=== PATIENT | female | born 1990 | race American Indian/Alaskan Native ===

== ENCOUNTER 2016-07-15 18:03 | Emergency (ER) | payer SELFPAY ==
[2016-07-15 19:40] LABS: Bacteria,Urine 1+ /HPF (Negative); Bilirubin,Urine NEG (Negative); Blood,Urine NEG (Negative); Ketones,Urine NEG (Negative); Leukocyte Esterase,Urine NEG (Negative); Mucus,Urine FEW /HPF; Nitrite,Urine NEG (Negative); Protein,Urine <15 mg/dL mg/dL (Negative); RBC,Urine < 1.0 /HPF (0.0-6.0); Urobilinogen,Urine < 2.0 mg/dL (<2.0); WBC,Urine < 1.0 /HPF (0.0-6.0)
--- NOTE | 2016-07-15 22:06 | Emergency Department Report ---
ED General Adult HPI - General Chief complaint: Urogenital-Female Stated complaint: NAUSEA/BREAST DISCHARGE/FATIQUE Time Seen by Provider: 07/15/16 21:39 Source: patient Mode of arrival: Ambulatory Limitations: No Limitations - History of Present Illness Initial comments: PT states she think she might be , PT states for the last week her breast have been tender and she has been lactating. PT also c/o low back pain. PT states she has a hx of vertigo and sz and currently does not have PCP. MD Complaint: possible Onset/Timin -: Gradual, week(s) Location: chest (rene breast ) Consistency: intermittent Improves with: none Associated Symptoms: denies: fever/chills, malaise Treatments Prior to Arrival: none - Related Data Previous Rx's Medication Instructions Recorded Last Taken Type Ibuprofen [Motrin] 600 mg PO Q8H PRN #15 tablet 07/15/16 Unknown Rx methOCARBAMOL [Robaxin TAB] 500 mg PO Q6H PRN #15 tablet 07/15/16 Unknown Rx Allergies Allergy/AdvReac Type Severity Reaction Status Date / Time morphine Allergy Hives Verified 07/15/16 18:45 Penicillins Allergy Hives Verified 07/15/16 18:45 ED Review of Systems ROS: Stated complaint: NAUSEA/BREAST DISCHARGE/FATIQUE Other details as noted in HPI Comment: All other systems reviewed and negative Constitutional: denies: fever, malaise Gastrointestinal: nausea. denies: abdominal pain, vomiting Genitourinary: discharge (thick white dc, + itching, pt states she would like diflucan, because that helped her last time) Musculoskeletal: back pain Neurological: other (denies recent sz activity ) ED Past Medical Hx - Past Medical History Additional medical history: SCOLIOSIS - Surgical History Additional Surgical History: back surgery for spinal fusion. - Social History Smoking Status: Current Every Day Smoker Substance Use Type: Alcohol - Medications Home Medications: Home Medications Medication Instructions Recorded Confirmed Last Taken Type Ibuprofen [Motrin] 600 mg PO Q8H PRN #15 tablet 07/15/16 Unknown Rx methOCARBAMOL [Robaxin TAB] 500 mg PO Q6H PRN #15 tablet 07/15/16 Unknown Rx ED Physical Exam - General Limitations: No Limitations General appearance: alert, in no apparent distress - Head Head exam: Present: atraumatic, normocephalic - Eye Eye exam: Present: normal appearance. Absent: conjunctival injection - ENT ENT exam: Present: normal exam, normal orophraynx - Neck Neck exam: Present: normal inspection, full ROM. Absent: tenderness - Respiratory Respiratory exam: Present: normal lung sounds bilaterally. Absent: respiratory distress - Cardiovascular Cardiovascular Exam: Present: regular rate, normal rhythm - GI/Abdominal GI/Abdominal exam: Present: soft. Absent: tenderness - External exam: Present: other (L breast without mass or nipple discharge. R breast without mass - pt is able to produce small amount of nipple discharge. no signs of cellulits or abscess ) - Extremities Exam Extremities exam: Present: normal inspection, full ROM - Back Exam Back exam: Present: tenderness, muscle spasm, paraspinal tenderness (L lumbar paraspinal tenderness). Absent: CVA tenderness (R), CVA tenderness (L) - Neurological Exam Neurological exam: Present: alert, oriented X3 - Psychiatric Psychiatric exam: Present: normal affect, normal mood - Skin Skin exam: Present: warm, dry, intact ED Course Vital Signs 07/15/16 07/15/16 18:45 22:54 Temperature 98.5 F Pulse Rate 100 H 74 Respiratory 17 16 Rate Blood Pressure 136/86 Blood Pressure 121/84 [Left] O2 Sat by Pulse 100 95 Oximetry - Reevaluation(s) Reevaluation #1: 07/15/16 22:50 PT aware of lab results. PT c/o vaginal discharge and itching. PT wanting emperic treatment for yeast. PT states she has been in this ED for hours and she does not want to wait any longer. PT aware that if she does not have a yeast infection, the diflucan will not help her. PT aware she will need to follow up with PCP for outpt follow up to rule out pituitary tumor. - Pulse Oximetry Interpretation Digit-Finger Initial Pulse Oximetry Readin Actions Taken: none ED Medical Decision Making - Differential Diagnosis , hormonal imblance, vaginitis, pituitary adenoma, back pain Critical care attestation.: If time is entered above; I have spent that time in minutes in the direct care of this critically ill patient, excluding procedure time. ED Disposition Clinical Impression: Abnormal breast finding, Vaginal itching Acute low back pain Qualifiers: Back pain laterality: left Sciatica presence: without sciatica Qualified Code(s ): M54.5 - Low back pain Disposition: DISCHARGED TO HOME OR SELFCARE Is pt being admited?: No Does the pt Need Aspirin: No Condition: Stable Instructions: Low Back Strain (ED), Vaginitis (ED), Acute Low Back Pain (ED), Pituitary Adenoma (ED) Additional Instructions: No driving or EToh after Robaxin Follow up with PCP or health clinic for outpt work up of lactating, you may need your hormone levels and MRI of brain Prescriptions: Ibuprofen [Motrin] 600 mg PO Q8H PRN #15 tablet PRN Reason: Pain methOCARBAMOL [Robaxin TAB] 500 mg PO Q6H PRN #15 tablet PRN Reason: Muscle Spasm Referrals: [facility] [place] [Outside] - 3-5 Days [facility] [Outside] - 3-5 Days PRIMARY CARE, [Primary Care Provider] - 3-5 Days Time of Disposition: 22:53
[2016-07-15] MEDS ORDERED: DIFLUCAN PO ONE (22:09)
[2016-07-15 22:55] VITALS: BP 121/84
== END 2016-07-15 22:56 | disposition home or self-care (01) ==
LOC: ED 18:03
DX: M54.5 Low back pain (principal); N89.8 Other specified noninflammatory disorders of vagina; N64.52 Nipple discharge; F17.200 Nicotine dependence, unspecified, uncomplicated; Z88.6 Allergy status to analgesic agent; Z88.0 Allergy status to penicillin
CPT/HCPCS: 81001; 81025; 99282

== ENCOUNTER 2018-01-15 15:02 | Emergency (ER) | payer SELFPAY ==
[2018-01-15 16:04] VITALS: BP 139/93
[2018-01-15 16:42] LABS: Hematocrit 39.3 % (30.3-42.9); Hemoglobin 13.3 gm/dl (10.1-14.3); Mean Corpuscular HGB Conc 34 % (30-34); Mean Corpuscular Hemoglobin 31 pg (28-32); Mean Corpuscular Volume 90 fl (79-97); Platelet Count 306 K/mm3 (140-440); Red Blood Count 4.35 M/mm3 (3.65-5.03); Red Cell Distribution Width 14.4 % (13.2-15.2)
[2018-01-15 17:02] LABS: BUN/Creatinine Ratio 20; Blood Urea Nitrogen 12 mg/dL (7-17); Calcium 9.4 mg/dL (8.4-10.2); Hemolysis Index 7
[2018-01-15] MEDS ORDERED: MOTRIN PO ONE (17:11)
[2018-01-15] MEDS ORDERED: CLEOCIN PO ONE (17:11)
[2018-01-15] MEDS ORDERED: KEPPRA PO ONE (17:11)
--- NOTE | 2018-01-15 17:51 | Emergency Department Report ---
ED General Adult HPI - General Chief complaint: Seizure Stated complaint: SEIZURE Time Seen by Provider: 01/15/18 16:13 Source: patient, family Mode of arrival: Ambulatory Limitations: No Limitations - History of Present Illness Initial comments: Patient reports multiple problems to include that she is having frequent seizures that she is not had in the past and that she saw Dr. Valle and he put her on Keppra 500 mg twice a day but she has not been able to afford it this way she is having a seizure and wants to know if there is alternative was she can do. She did not have a seizure today she says she is here because she cannot afford Keppra. She is also complaining of left ear pain and she thinks is the case she has been trying to clean the wax with peroxide in her ear is irritated and reported that she had some clear drainage from left ear yesterday. Denies any headache, dizziness, nausea or vomiting. Denies any alteration in speech. Denies any head injury. She is also complaining of right lower back toothache. Denies any sinus congestion or runny nose. Pain to tooth and left ear is 6 out of 10 and a can. No alleviating in factors but exacerbated by touch to her left ear. Denies any fever or chills MD Complaint: seizure and seizure medication/earache and toothache Onset/Timin -: days(s) Location: head (left ear ache), mouth Radiation: non-radiation Severity scale (0 -10): 6 Quality: aching Consistency: constant Improves with: none Worsens with: eating, movement Associated Symptoms: other (patient requests then placed that she can get her Keppra affordable). denies: confusion, chest pain, cough, diaphoresis, fever/ chills, headaches, loss of appetite, malaise, nausea/vomiting, rash, seizure, shortness of breath, syncope, weakness Treatments Prior to Arrival: none - Related Data Previous Rx's Medication Instructions Recorded Last Taken Type methOCARBAMOL [Robaxin TAB] 500 mg PO Q6H PRN #15 tablet 07/15/16 Unknown Rx Gentamicin 0.3% Ophth Soln 4 drops OP Q8H 7 Days #1 bottle 01/15/18 Unknown Rx Ibuprofen [Motrin 600 MG tab] 600 mg PO Q8H PRN #12 tablet 01/15/18 Unknown Rx levETIRAcetam [Keppra TAB] 500 mg PO ONCE 30 Days #60 tablet 01/15/18 Unknown Rx Allergies Allergy/AdvReac Type Severity Reaction Status Date / Time morphine Allergy Hives Verified 07/15/16 18:45 Penicillins Allergy Hives Verified 07/15/16 18:45 ED Review of Systems ROS: Stated complaint: SEIZURE Other details as noted in HPI Constitutional: denies: chills, fever Eyes: denies: eye pain, vision change ENT: ear pain ("pain), dental pain. denies: throat pain, epistaxis, congestion Respiratory: denies: cough, shortness of breath, SOB with exertion, SOB at rest , stridor, wheezing Cardiovascular: denies: chest pain, palpitations, dyspnea on exertion, edema, syncope Gastrointestinal: denies: nausea, vomiting, diarrhea Genitourinary: denies: urgency, dysuria, discharge Musculoskeletal: denies: back pain, joint swelling, arthralgia, myalgia Skin: denies: rash, lesions Neurological: denies: headache, weakness, numbness, paresthesias, confusion, abnormal gait, vertigo Psychiatric: denies: anxiety, depression Hematological/Lymphatic: denies: easy bleeding, easy bruising ED Past Medical Hx - Past Medical History Previous Medical History?: Yes Hx Seizures: Yes Additional medical history: SCOLIOSIS - Surgical History Past Surgical History?: Yes Additional Surgical History: back surgery for spinal fusion. - Family History Family history: hypertension - Social History Smoking Status: Current Some Day Smoker Substance Use Type: Alcohol - Medications Home Medications: Home Medications Medication Instructions Recorded Confirmed Last Taken Type methOCARBAMOL [Robaxin TAB] 500 mg PO Q6H PRN #15 tablet 07/15/16 Unknown Rx Gentamicin 0.3% Ophth Soln 4 drops OP Q8H 7 Days #1 bottle 01/15/18 Unknown Rx Ibuprofen [Motrin 600 MG tab] 600 mg PO Q8H PRN #12 tablet 01/15/18 Unknown Rx levETIRAcetam [Keppra TAB] 500 mg PO ONCE 30 Days #60 tablet 01/15/18 Unknown Rx ED Physical Exam - General Limitations: No Limitations General appearance: alert, in no apparent distress - Head Head exam: Present: atraumatic, normocephalic, normal inspection, other - Eye Eye exam: Present: normal appearance, PERRL, EOMI. Absent: nystagmus, periorbital swelling, periorbital tenderness Pupils: Present: normal accommodation - ENT ENT exam: Present: normal orophraynx, mucous membranes moist, TM's normal bilaterally (bilateral TM normal exam), normal external ear exam (EAC erythema and tender without any drainage), other (nasal mucosa, bilateral normal exam. Maxillary and frontal sinus is nontender to palpate). Absent: normal exam - Expanded ENT Exam Expanded Mouth exam: Present: normal external inspection Teeth exam: Present: dental tenderness #. Absent: fractured tooth # 1 - Dental Tenderness (#32 with tenderness without any cavity.) Throat exam: Positive: normal inspection - Neck Neck exam: Present: normal inspection, full ROM. Absent: tenderness, lymphadenopathy - Respiratory Respiratory exam: Present: normal lung sounds bilaterally. Absent: respiratory distress, chest wall tenderness - Cardiovascular Cardiovascular Exam: Present: regular rate, normal rhythm, normal heart sounds. Absent: systolic murmur, diastolic murmur - Extremities Exam Extremities exam: Present: normal inspection, full ROM, normal capillary refill , other (No cce. + 2 pulses in all extremities, no neurovascular compromise). Absent: tenderness, pedal edema, joint swelling - Neurological Exam Neurological exam: Present: alert, oriented X3, normal gait - Psychiatric Psychiatric exam: Present: normal affect, normal mood - Skin Skin exam: Present: warm, dry, intact, normal color. Absent: rash ED Course Vital Signs 01/15/18 15:49 Temperature 98.4 F Pulse Rate 84 Respiratory 20 Rate Blood Pressure 139/93 O2 Sat by Pulse 100 Oximetry - Reevaluation(s) Reevaluation #1: 01/15/18 17:11 Patient stable throughout ED course. Patient given an clindamycin 6 after milligrams by mouth, Motrin 800 mg by mouth for toothache and tenderness and started on Keppra 500 mg by mouth for seizure. ED Medical Decision Making - Medical Decision Making This is a 28-year-old female with multiple complaints include inability to afford Keppra which is a seizure medication. She is had some psychosocial changes in her life and she is not able to afford medication, she is also complaining the left ear ache and toothache. She is here to be evaluated. Assessment/plan 1: Seizure disorder-patient started back on her Keppra and she was given good Rx discount card and I told her if that it will cause her $18 for 60 tablets of 500 mg pills and she takes 500 mg twice a day. Patient reported that she will be able to afford this. Patient is neurologically intact with no noted head injury. I referred her back to her neurologist was Dr. valle and I also gave her surgeons paperwork on [facility]. 2: Toothache-started on clindamycin 600 mg by mouth and Motrin 800 mg by mouth and referred to [facility] dental clinic. Patient is allergic to penicillin. 3: Otalgia with left ear otitis externa-gentamicin to instill 4 drops in left ear for 7 days. I discussed diagnosis, treatment plan, medication the patient. I discussed [facility] as an alternative for primary care if she is having problem with primary care doctor and seizure management. I also gave her good Rx card and gave her information on pastor of medications and she says she will be able to afford crisis. I told her to present to good Rx card to pharmacy and then she can keep that with her when she needs another prescription filled. Patient is stable. Discharged home in stable condition. Vital signs are stable she is afebrile and given a prescription for clindamycin, gentamicin to instill in her left ear and Keppra. Critical care attestation.: If time is entered above; I have spent that time in minutes in the direct care of this critically ill patient, excluding procedure time. ED Disposition Clinical Impression: Otalgia of left ear, Seizure disorder, Toothache Otitis externa Qualifiers: Otitis externa type: unspecified type Chronicity: acute Laterality: left Qualified Code(s): H60.502 - Unspecified acute noninfective otitis externa, left ear Disposition: - TO HOME OR SELFCARE Is pt being admited?: No Does the pt Need Aspirin: No Condition: Stable Instructions: Toothache (ED), Epilepsy (ED), Otitis Externa (ED) Additional Instructions: Please follow-up with your neurologist tomorrow regarding seizure Please use the good Rx prescription card given to you to get medication. Take clindamycin for toothache this is $15 for 30 tablets at [facility] Take gentamicin drops and incidental in left ear as prescribed which is $9.99 a [facility] Take Keppra for seizure disorder and you can also get this year at [facility] and this is $18 for 60 tablets at [facility]. Please follow-up at your primary care physician in 2 days and if he do not have one follow-up with outside Medical Center Take Motrin for pain Prescriptions: Gentamicin 0.3% Ophth Soln 4 drops OP Q8H 7 Days #1 bottle Ibuprofen [Motrin 600 MG tab] 600 mg PO Q8H PRN #12 tablet PRN Reason: Pain levETIRAcetam [Keppra TAB] 500 mg PO ONCE 30 Days #60 tablet Referrals: PRIMARY CAREMD [Primary Care Provider] - 01/17/18 PAT VALLE MD [Staff Physician] - 01/16/18 [facility] [Outside] - 01/17/18 Forms: Work/School Release Form(ED)
== END 2018-01-15 17:47 | disposition home or self-care (01) ==
LOC: ED 15:02
DX: H60.502 Unspecified acute noninfective otitis externa, left ear (principal); G40.909 Epilepsy, unspecified, not intractable, without status epilepticus; K08.89 Other specified disorders of teeth and supporting structures; F17.200 Nicotine dependence, unspecified, uncomplicated; Z88.6 Allergy status to analgesic agent; Z88.0 Allergy status to penicillin
CPT/HCPCS: 36415; 80048; 85027; 99283; 99284